=== PATIENT | male | born 1990 | race Caucasian/White ===

== ENCOUNTER 2022-08-15 18:13 | Inpatient (IN) | payer MEDICAID ==
[~2022-08-15] VITALS: Ht 180.3 cm; Wt 95.3 kg
[2022-08-15 18:15] VITALS: BP 140/72
--- NOTE | 2022-08-15 18:16 | NUR ---
BIBA to bed 02
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
--- NOTE | 2022-08-15 19:15 | NUR ---
Report and transfer of care endorsed to AMMON [place].
[2022-08-15] MEDS ORDERED: NACL 0.9% 1,000 ML IV ONE (19:35)
--- NOTE | 2022-08-15 20:07 | NUR ---
pt is alert and orieneted x 4. pt is has a leach. room air and ambulatory.
[2022-08-15 20:14] LABS: APPEARANCE,URINE CLEAR (CLEAR); BILIRUBIN,URINE 2+ (NEGATIVE); BLOOD, URINE 3+ (NEGATIVE); COLOR,URINE YELLOW (YELLOW); LEUKOCYTE ESTERASE ,URINE TRACE (NEGATIVE); NITRITE, URINE POSITIVE (NEGATIVE); PH,URINE 5.5 (5.0-9.0); UGLUCOSE TRACE (NEGATIVE)
[2022-08-15 20:17] LABS: BASOPHILS # (AUTO) 0.1 K/uL (0.00-0.22); BASOPHILS % (AUTO) 0.6 % (0.0-2.0); EOSINOPHILS # (AUTO) 0.2 K/uL (0-0.4); HEMATOCRIT 26.5 % (36-52); HEMOGLOBIN 8.8 g/dL (12.0-18.0); LYMPHOCYTES # (AUTO) 2.3 K/uL (2.0-11.5); LYMPHOCYTES % (AUTO) 25.8 % (20.5-51.1); MEAN CORPUSCULAR HEMOGLOBIN 33 pg (27-31); MEAN CORPUSCULAR HGB CONC 33 g/dL (33-37); MONOCYTES # (AUTO) 0.7 K/uL (0.8-1.0); MONOCYTES % (AUTO) 8.2 % (1.7-9.3); NEUTROPHILS # (AUTO) 5.7 K/uL (1.8-7.7); NEUTROPHILS % (AUTO) 63.4 % (42.2-75.2); PLATELET COUNT (AUTO) 297 K/uL (140-450); RED CELL DISTRIBUTION WIDTH 18.9 % (11.6-13.7)
[2022-08-15 20:26] LABS: ALBUMIN 3.4 g/dL (3.4-5.0); ANION GAP 9.1 (8-16); CREATININE 0.9 mg/dL (0.6-1.3); POTASSIUM 4.1 mmol/L (3.5-5.1)
[2022-08-15 20:28] LABS: RBC,URINE 11-20 (MOD) /HPF (0-5)
[2022-08-15] MEDS ORDERED: cefTRIAXone 1,000 MG VIAL ONE (21:34)
[2022-08-15] MEDS ORDERED: HEPARIN PER PHARMACY MC PRN (21:50)
[2022-08-15] MEDS ORDERED: MORPHINE SULFATE 2 MG/ML SYR IVP PRN (22:15)
[2022-08-15] MEDS ORDERED: LORazepam 2 MG/ML VIAL IVP PRN (22:15)
[2022-08-15] MEDS ORDERED: POTASSIUM CHLORIDE 10 MEQ TABER PO PRN (22:15)
[2022-08-15] MEDS ORDERED: ZOLPIDEM 10 MG TAB PO PRN (22:15)
[2022-08-15] MEDS ORDERED: DOCUSATE SODIUM 100 MG GELCAP PO PRN (22:15)
[2022-08-15] MEDS ORDERED: ONDANSETRON 4 MG/2 ML VIAL IVP PRN (22:15)
[2022-08-15 22:52] LABS: PROTHROMBIN TIME 9.2 secs (10.8-13.4)
[2022-08-15] MEDS ORDERED: TAMS0.4C96 PO (23:26)
[2022-08-15] MEDS ORDERED: IBUP-2213 PO (23:26)
[2022-08-15] MEDS ORDERED: SENN-73 PO (23:26)
[2022-08-15] MEDS ORDERED: DOCU-299 PO (23:26)
[2022-08-15] MEDS ORDERED: OXYC-304 PO (23:26)
[2022-08-15] MEDS ORDERED: ACET-10509 PO (23:26)
[2022-08-16] MEDS: hePARIN / DEXT 5% PREMIX 250 ML IV SCH ×3 (00:07→14:40)
[2022-08-16 00:30] VITALS: BP 149/69
--- NOTE | 2022-08-16 00:30 | NUR ---
RECEIVED PT A NEW ADMIT FROM ER. PATIENT IS AWAKE,ALERT AND ORIENTED. DENIES PAIN. NO ACUTE RESPIRATORY DISTRESS NOTED. HEPARIN DRIP AT 1710 UNITS/ HR INFUSING WELL IN THE RIGHT AC. SKIN WARM AND DRY TO TOUCH. ADMISSION ASSESSMENT DONE AND DOCUMENTED. SAFETY PRECAUTIONS IN PLACE, CALL LIGHT IN REACH, ENCOURAGED TO CALL IF ASSISTANCE IS NEEDED, PT VERBALLY ACKNOWLEDGED.
--- NOTE | 2022-08-16 01:04 | NUR ---
Patient will be admitted to care of pulmonary embolism . Admited to telemery. Will go to room 111a. Belongings list completed. Report to
[2022-08-16 04:00] VITALS: BP 123/69
--- NOTE | 2022-08-16 06:11 | NUR ---
PATIENT IS ASLEEP. NO DISTRESS NOTED. ALL NEEDS ATTENDED TO. SAFETY PRECAUTIONS MAINTAINED DURING THE SHIFT, CALL LIGHT REMAINED WITHIN REACH.
[2022-08-16 07:25] LABS: BASOPHILS # (AUTO) 0.1 K/uL (0.00-0.22); BASOPHILS % (AUTO) 0.7 % (0.0-2.0); EOSINOPHILS # (AUTO) 0.2 K/uL (0-0.4); EOSINOPHILS % (AUTO) 2.1 % (0.0-4.0); HEMATOCRIT 25.4 % (36-52); HEMOGLOBIN 8.4 g/dL (12.0-18.0); LYMPHOCYTES # (AUTO) 3.1 K/uL (2.0-11.5); LYMPHOCYTES % (AUTO) 32.6 % (20.5-51.1); MEAN CORPUSCULAR HEMOGLOBIN 32 pg (27-31); MEAN CORPUSCULAR HGB CONC 33 g/dL (33-37); MEAN CORPUSCULAR VOLUME 97.3 fL (80-94); MONOCYTES # (AUTO) 0.6 K/uL (0.8-1.0); MONOCYTES % (AUTO) 6.6 % (1.7-9.3); NEUTROPHILS # (AUTO) 5.5 K/uL (1.8-7.7); PLATELET COUNT (AUTO) 292 K/uL (140-450); RED BLOOD CELL COUNT(AUTO) 2.61 MIL/uL (4.20-6.10); RED CELL DISTRIBUTION WIDTH 18.6 % (11.6-13.7); WHITE BLOOD COUNT (AUTO) 9.6 K/uL (4.8-10.8)
--- NOTE | 2022-08-16 07:30 | NUR ---
RECEIVED REPORT FROM PREVENTIVE MAINTENANCE ENGINEER NURSE FOR CONTINUITY OF CARE, POC DISCUSSED. PT IS RESTING IN BED ON ROOM AIR WITH CHEST RISING AND FALLING EVEN AND UNLABORED. PT ON HEP DRIP AT 1710, PTT WAS DRAWN AT 0605, PENDING RESULTS FOR ANY CHANGES. PT ON TELE. ALL SAFETY MEASURES IN PLACE, CALL LIGHT WITHIN REACH.
[2022-08-16 07:36] LABS: ANION GAP 11.4 (8-16); CARBON DIOXIDE 26.5 mmol/L (21-32); CREATININE 0.9 mg/dL (0.6-1.3); POTASSIUM 3.9 mmol/L (3.5-5.1)
[2022-08-16 08:00] VITALS: BP 128/81
--- NOTE | 2022-08-16 09:18 | NUR ---
PATIENT HAS BEEN SCREENED AND CATEGORIZED MODERATE NUTRITION RISK. PATIENT WILL BE SEEN WITHIN 3-5 DAYS OF ADMISSION. REVIEWED BY ISAIAH ROSAS RD
--- NOTE | 2022-08-16 09:28 | NUR ---
CALLED LAB REGARDING PTT STILL PENDING, LAB STATED THE MACHINE IS DOWN AND THEIR WORKING QUICKLY THEY CAN.
[2022-08-16 11:28] LABS: PROTHROMBIN TIME 9.5 secs (10.8-13.4)
--- NOTE | 2022-08-16 11:45 | NUR ---
PTT RESULTS 44.1. BOLUS AND INCREASE RATE PER PHARMACY PROTOCOL. DISCUSSED WITH PHARMACIST MICHELLE. EDUCATION PROVIDED TO PT AND PTS GIRLFRIEND AT BEDSIDE, STATED THEY UNDERSTOOD. TORB REGARDING REMOVAL OF PARK, PARK SUCCESSFULLY REMOVED CATH IN PLACE. PT TOLERATED REMOVAL.
[2022-08-16 12:00] VITALS: BP 118/78
[2022-08-16] MEDS: ACETAMINOPHEN 325 MG TAB PO PRN ×2 (12:03→19:01)
--- NOTE | 2022-08-16 14:24 | NUR ---
MD NOTIFIED OF PT SLIGHT HEMATURIA IN URINAL, MD STATED TO CONTINUE TO MONITOR FOR NOW. IF CONTINUE THEN TO CONSULT UROLOGY.
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
--- NOTE | 2022-08-16 15:50 | NUR ---
PT PICKED UP IN STABLE CONDITION TO GO TO CT OF HEAD, VSS
[2022-08-16 16:00] VITALS: BP 125/77
--- NOTE | 2022-08-16 17:41 | NUR ---
PT URINATED, NO HEMATOMA NOTED IN TOILET BOWL. NEW GOWN PROVIDED PER REQUESTS. REPORTS ALL OTHER NEEDS ARE BEING MET AT THIS TIME. Addendum: 08/16/22 at 1815 by Agency 10 RN RN HEMATURIA NOT HEMATOMA
--- NOTE | 2022-08-16 18:15 | NUR ---
ALL NEEDS HAVE BEEN MET THROUGHOUT THE SHIFT, ALL SAFETY MEASURES IN PLACE. VSS.
--- NOTE | 2022-08-16 18:21 | NUR ---
CALLED LAB REGARDING IMPORTANCE OF KEEPING THE TIME FOR THE PTT, STATED THEY ARE ON THEIR WAY TO DRAW BLOOD.
--- NOTE | 2022-08-16 18:51 | NUR ---
PTT IS IN THERAPEUTIC LEVEL, PTT LAB DRAW NEXT SCHEDULED AT 0010. OUTREACH CONSULTANT WILL BE ENDORSED
--- NOTE | 2022-08-16 19:15 | NUR ---
RECEIVED PT FROM MORNING SHIFT NURSE. PT IS AOXX4, AMBULATORY WITH WALKER, AOX4, ABLE TO VERBALIZE NEEDS AND ABLE TO FOLLOW COMMANDS. PT IS ON ROOM AIR AND ON REGULAR DIET. PT HAS IV ON RIGHT AC GAUGE 20 RUNNING WITH HEPARIN AT 1900 UNITS. PT HAS RIGHT FEMUR WOUND SURGERY WITH NICOL. NO COMPLAIN OF PAIN AT THIS TIME AND NO S/S OF RESPIRATORY DISTRESS NOTED. ALL SAFETY MEASURES IMPLEMENTED. BED IN LOW POSITION, BED WHEELS ON LOCKED AND CALL LIGHT WITHIN REACH.
[2022-08-16 20:00] VITALS: BP 125/66
--- NOTE | 2022-08-16 20:00 | NUR ---
INSERTED NEW IV ON LEFT HAND GAUGE 22. IV IS PATENT AND INTACT. ALL SAFETY MEASURES IMPLEMENTED. BED IN LOW POSITION, BED WHEELS ON LOCKED AND CALL LIGHT WITHIN REACH.
--- NOTE | 2022-08-16 20:35 | NUR ---
SCHEDULED AND PRESCRIBED MEDICATION WAS GIVEN TO PT PER MD ORDER. NO COMPLAIN OF PAIN AT THIS TIME AND NO S/S OF RESPIRATORY DISTRESS NOTED. ALL SAFETY MEASURES IMPLEMENTED. BED IN LOW POSITION, BED WHEELS ON LOCKED AND CALL LIGHT WITHIN REACH.
--- NOTE | 2022-08-16 23:58 | NUR ---
AMBIEN WAS GIVEN TO PT PER PT REQUEST. PT DENIES PAIN AND NO S/S OF RESPIRATORY DISTRESS NOTED. ALL SAFETY MEASURES IMPLEMENTED. BED IN LOW POSITION, BED WHEELS ON LOCKED AND CALL LIGHT WITHIN REACH.
[2022-08-17] VITALS: BP 119/64
--- NOTE | 2022-08-17 02:00 | NUR ---
PT IS SLEEPING. CHEST RISE AND FALL SYMMETRICALLY NOTED. RESPIRATION IS EVEN AND UNLABORED. ALL SAFETY MEASURES IMPLEMENTED. BED IN LOW POSITION, BED WHEELS ON LOCKED AND CALL LIGHT WITHIN REACH.
[2022-08-17] MEDS: ACETAMINOPHEN 325 MG TAB PO PRN (02:34)
[2022-08-17 04:00] VITALS: BP 120/65
--- NOTE | 2022-08-17 04:00 | NUR ---
CHECKED THE PT, STILL SLEEPING. CHEST RISE AND FALL SYMMETRICALLY NOTED. RESPIRATION IS EVEN AND UNLABORED. ALL SAFETY MEASURES IMPLEMENTED. BED IN LOW POSITION, BED WHEELS ON LOCK AND CALL LIGHT WITHIN REACH.
[2022-08-17] MEDS: hePARIN / DEXT 5% PREMIX 250 ML IV SCH (06:25)
--- NOTE | 2022-08-17 07:15 | NUR ---
PT IS STABLE. ENDORSED PT TO MORNING SHIFT NURSE FOR CONTINUITY OF CARE.
[2022-08-17 07:22] LABS: BASOPHILS # (AUTO) 0.1 K/uL (0.00-0.22); BASOPHILS % (AUTO) 0.7 % (0.0-2.0); EOSINOPHILS # (AUTO) 0.2 K/uL (0-0.4); EOSINOPHILS % (AUTO) 1.9 % (0.0-4.0); HEMATOCRIT 27.4 % (36-52); HEMOGLOBIN 9.1 g/dL (12.0-18.0); LYMPHOCYTES # (AUTO) 3.1 K/uL (2.0-11.5); LYMPHOCYTES % (AUTO) 30.1 % (20.5-51.1); MEAN CORPUSCULAR HEMOGLOBIN 32 pg (27-31); MEAN CORPUSCULAR HGB CONC 33 g/dL (33-37); MEAN CORPUSCULAR VOLUME 97.1 fL (80-94); MONOCYTES # (AUTO) 0.8 K/uL (0.8-1.0); MONOCYTES % (AUTO) 7.8 % (1.7-9.3); NEUTROPHILS % (AUTO) 59.5 % (42.2-75.2); PLATELET COUNT (AUTO) 322 K/uL (140-450); RED BLOOD CELL COUNT(AUTO) 2.83 MIL/uL (4.20-6.10); RED CELL DISTRIBUTION WIDTH 18.4 % (11.6-13.7); WHITE BLOOD COUNT (AUTO) 10.1 K/uL (4.8-10.8)
[2022-08-17 07:43] LABS: ANION GAP 10.5 (8-16); CARBON DIOXIDE 26.5 mmol/L (21-32); CREATININE 0.9 mg/dL (0.6-1.3)
[2022-08-17 08:00] VITALS: BP 115/83
[2022-08-17] MEDS ORDERED: RIVA15TA1 PO ×2 (10:31)
[2022-08-17] MEDS ORDERED: CEPH-588 PO (10:31)
[2022-08-17 13:53] VITALS: BP 125/78
--- NOTE | 2022-08-17 14:55 | NUR ---
pt. admitted with right hip surgical wound 3 sites, aria inplace, dressing dci. inform pt continue to f/u with surgeon. per pt. 08/24/2022 will be the appointment.
== END 2022-08-17 15:05 | disposition home or self-care (01) | DRG 134 ==
LOC: MED 18:13 → MTU 22:10
PROVIDERS: ADMIT Family Medicine; ATTEND Family Medicine
DX: I26.99 Other pulmonary embolism without acute cor pulmonale (principal); E83.51 Hypocalcemia; N39.0 Urinary tract infection, site not specified; D64.9 Anemia, unspecified; R73.9 Hyperglycemia, unspecified; R31.29 Other microscopic hematuria; Z20.822 Contact with and (suspected) exposure to COVID-19; R80.9 Proteinuria, unspecified; Z98.890 Other specified postprocedural states
CPT/HCPCS: 36415; 70450; 71275; 73502; 76770; 80048; 80053; 81001; 83735; 83880; 84484; 85025; 85610; 85730; 87081; 87086; 93005; 96361; 96365; 97116; 97530; 99291; J0696; J1644; J2270; J7060; Q0092; Q9967